=== PATIENT | male | born 2000 | race African-American/Black ===

== ENCOUNTER 2021-11-13 13:55 | Observation (INO) ==
[2021-11-13 14:35] LABS: ABS Eosinophils 0.2 10^3/ul (0-0.6); ABS Lymphocytes 2.3 10^3/ul (1.0-4.8); ABS Monocytes 0.4 10^3/ul (0-0.8); ABS Neutrophils 2.3 10^3/ul (1.5-7.7); Eosinophil % 3.6 %; Hematocrit 38 % (42-52); Hemoglobin 12.8 g/dL (14.0-18.0); Lymphocyte % 43.9 %; Mean Corpuscular HGB Conc 33 g/dL (31-36); Mean Corpuscular Hemoglobin 29 pg (27-31); Mean Corpuscular Volume 85 fL (80-94); Nucleated Red Blood Cells % 0.1; Platelet Count 178 10^3/uL (150-450); Red Blood Count 4.49 10^6 /uL (4.18-5.48); Red Cell Distribution Width 14 % (10-15); White Blood Count 5.2 10^3/uL (3.5-10.8)
[2021-11-13 14:55] LABS: ALT 7 U/L (7-52); Albumin 4.4 g/dL (3.2-5.2); Albumin/Globulin Ratio 1.7 (1-3); Alkaline Phosphatase 53 U/L (35-149); Blood Urea Nitrogen 14 mg/dL (6-24); CO2 Carbon Dioxide 27 mmol/L (22-32); Calcium 9.3 mg/dL (8.6-10.3); Chloride 104 mmol/L (101-111); Globulin 2.6 g/dL (2-4); Glucose 86 mg/dL (70-100); Sodium 137 mmol/L (135-145)
[2021-11-13 15:10] LABS: Acetaminophen < 15 mcg/mL; Alcohol, S < 13 mg/dL (<13)
[2021-11-13 15:37] LABS: Urine Appearance Clear; Urine Bilirubin Negative (Negative); Urine Blood Negative (Negative); Urine Color Amber; Urine Glucose Negative (Negative); Urine Ketones Negative (Negative); Urine Nitrite Negative (Negative); Urine Protein Negative (Negative); Urine Specific Gravity 1.017 (1.002-1.030); Urine Urobilinogen Negative (Negative)
[2021-11-13 15:57] LABS: AST 17 U/L (13-39); Anion Gap 6 mmol/L (2-11); Potassium 4.4 mmol/L (3.5-5.0)
[2021-11-13] MEDS ORDERED: diPHENhydraMINE 25 mg TAB PO PRN (16:04)
[2021-11-13 16:35] LABS: Urine Benzodiazepine Screen None Detected (None Detect); Urine Cannabinoids Screen None Detected (None Detect); Urine Opiates Screen None Detected (None Detect)
[2021-11-13 17:40] LABS: Rapid COVID-19 Molecular Undetected (Undetected)
[2021-11-13] MEDS ORDERED: Lorazepam PYXIS KEY PRN (23:26)
[2021-11-13] MEDS ORDERED: LORazepam 2 mg VIAL 1 ml IV PUSH PRN (23:26)
[2021-11-13] MEDS ORDERED: LORazepam 2 mg VIAL 1 ml ONE (23:30)
[2021-11-14 03:28] VITALS: BP 139/70
== END 2021-11-14 00:25 ==
LOC: EDHOLD 13:55 → ED 13:55 → MEDTELE 19:03
PROVIDERS: ADMIT Physician Assistant; ATTEND Internal Medicine